=== PATIENT | male | born 1995 | race Hispanic/Latino ===

== ENCOUNTER 2020-09-20 09:41 | Outpatient (CLI) | payer OTHER, SELFPAY ==
--- NOTE | 2020-09-20 11:30 | NEURO_ITS ---
Impression: # Complains of paresthesia of left upper extremity. # Left Carpal Tunnel Syndrome. # No ulnar neuropathy. # Normal needle/EMG exam. # Clinical correlation recommended. Nerve Conduction Studies Anti Sensory Summary Table Stim Site NR Peak (ms) P-T Amp (?V) Site1 Site2 Delta-P (ms) Dist (cm) Enmanuel (m/s) Left Median Anti Sensory (2-3nd Digit) Wrist 3.0 67.2 Wrist 2-3nd Digit 3.0 14.0 47 Wrist 3.1 43.0 Wrist 2-3nd Digit 3.0 14.0 47 Left Radial Anti Sensory (Base 1st Digit) Wrist 2.0 17.0 Wrist Base 1st Digit 2.0 0.0 Left Ulnar Anti Sensory (5th Digit) Wrist 2.9 77.2 Wrist 5th Digit 2.9 14.0 48 Motor Summary Table Stim Site NR Onset (ms) O-P Amp (mV) Site1 Site2 Delta-0 (ms) Dist (cm) Enmanuel (m/s) Left Median Motor (Abd Poll Brev) Wrist 4.1 2.7 Elbow Wrist 5.0 28.0 56 Elbow 9.1 4.5 Left Ulnar Motor (Abd Dig Minimi) Wrist 2.7 7.1 A Elbow Wrist 5.0 30.0 60 A Elbow 7.7 6.1 B Elbow Wrist 1.7 0.0 F Wave Studies NR F-Lat (ms) L-R F-Lat (ms) Left Median (Mrkrs) (Abd Poll Brev) 26.63 Left Ulnar (Mrkrs) (Abd Dig Min) 26.72 EMG Side Muscle Nerve Root Ins Act Fibs Amp Dur Recrt Comment Left 1stDorInt Ulnar C8-T1 Nml Nml Nml Nml Nml Left Ext Indicis Radial (Post Int) C7-8 Nml Nml Nml Nml Nml Left Ext Digitorum Radial (Post Int) C7-8 Nml Nml Nml Nml Nml Left BrachioRad Radial C5-6 Nml Nml Nml Nml Nml Left PronatorTeres Median C6-7 Nml Nml Nml Nml Nml Left Abd Poll Brev Median C8-T1 Nml Nml Nml Nml Nml Left ABD Dig Min Ulnar C8-T1 Nml Nml Nml Nml Nml Left Anconeus Radial C7-8 Nml Nml Nml Nml Nml Left Biceps Musculocut C5-6 Nml Nml Nml Nml Nml Left Brachialis Musculocut C5-6 Nml Nml Nml Nml Nml Left Triceps Radial C6-7-8 Nml Nml Nml Nml Nml Left Deltoid Axillary C5-6 Nml Nml Nml Nml Nml MTDD
== END 2020-09-20 09:42 | disposition home or self-care (01) ==
PROVIDERS: PCP Emergency Medicine; Visit Provider Emergency Medicine
DX: R20.2 Paresthesia of skin (principal); G56.02 Carpal tunnel syndrome, left upper limb
CPT/HCPCS: 95886; 95909

== ENCOUNTER 2024-01-02 12:58 | Emergency (ER) | payer SELFPAY ==
--- NOTE | ~2024-01-02 | XR_ITS ---
Right Knee Technique: AP, lateral, and oblique views were obtained. Clinical History: Pain Findings: No fracture or dislocation is seen. Osseous alignment is anatomic. Joint spaces are preserv ed without degenerative or erosive change. Soft tissues are unremarkable. No joint effusion is seen. Impression: Unremarkable right knee radiographs. Reviewed, dictated and finalized at [facility]. PULLER Impression: Unremarkable right knee radiographs.
[2024-01-02 13:01] VITALS: BP 140/73; PULSE 70; RESP 16; TEMP 36.8; O2SAT 99
--- NOTE | 2024-01-02 14:26 | ED.GENADULT ---
[facility] - General Adult General Chief complaint: Extremity Injury, Lower Stated complaint: right knee Time Seen by Provider: 01/02/24 13:45 Source: patient Mode of arrival: ambulatory Limitations: no limitations History of Present Illness HPI narrative: This is a 28-year-old male who presents to the ED with chief complaint of right knee injury that occurred last night. Patient was playing indoor soccer when he was pushed into the wall by another player. He reports landing on the right leg and felt a pop in the knee. He was unable to play after. Reports difficulty with bending the knee and ambulating but is able hobble. Denies numbness, weakness or any further sites of pain or injury. Related Data Allergies Allergy/AdvReac Type Severity Reaction Status Date / Time No Known Allergies Allergy Verified 01/02/24 13:44 Review of Systems Review of Systems: All systems as dictated in [facility] Family History Family History (Updated 09/10/17 @ 15:41 by DOCTOR UNKNOWN) Mother Asthma, Onset Age: 32 Sibling Asthma Patient's brother is in good health Father Patient's father is in good health Exam Narrative: GENERAL: Well-appearing, well-nourished, and in no acute distress. HEAD: Normocephalic, atraumatic. EYES: PERRLA and EOMI. ENT: Nares clear, no rhinorrhea or epistaxis. Mucous membranes moist. Oropharynx without tonsillar hypertrophy exudate or other lesions. NECK: Supple. No adenopathy or masses. CHEST: No respiratory distress. Clear to auscultation. No wheezes rales or rhonchi HEART: Regular rate and rhythm. No murmur heard. Normal peripheral pulses. ABDOMEN: Soft, nontender, nondistended, normal active bowel sounds. MSK: RLE: Mild joint effusion at the knee. Mild tenderness to the medial knee. Full active range of motion although with pain. Valgus stress of the knee causes pain. Neurovascularly intact distally. Soft compartments. LLE: Benign SKIN: Warm, dry, no rash. NEURO: Alert and oriented x3. No focal deficits. PSYCH: Normal mood and affect. Course Vital Signs Vital signs: Vital Signs Temperature 98.2 F 01/02/24 13:01 Pulse Rate 70 01/02/24 13:01 Respiratory Rate 16 01/02/24 13:01 Blood Pressure 140/73 01/02/24 13:01 Pulse Oximetry 99 01/02/24 13:01 Oxygen Delivery Room Air 01/02/24 13:01 Temperature 98.2 F 01/02/24 13:01 Pulse Rate 66 01/02/24 14:29 Respiratory Rate 15 01/02/24 14:29 Blood Pressure 127/85 01/02/24 14:29 Pulse Oximetry 99 01/02/24 14:29 Oxygen Delivery Room Air 01/02/24 13:01 Medical Decision Making MDM Narrative Medical decision making narrative: This is a 28-year-old male who presents to the ED for chief complaint of right knee injury that occurred last night. Vitals are normal. Exam shows some a mild right knee swelling but full range of motion. No bruising or deformity. Neurovascularly intact. X-rays show no acute osseous findings. Symptoms are most likely consistent with soft tissue injury. He was given knee immobilizer, crutches and orthopedic referral. Pt will be discharged in stable condition. Return precautions given and supportive measures discussed. Pt is understanding and agreeable with plan for discharge and follow-up with PCP. Vital Signs Vital Signs: Vital Signs Temperature 98.2 F 01/02/24 13:01 Pulse Rate 70 01/02/24 13:01 Respiratory Rate 16 01/02/24 13:01 Blood Pressure 140/73 01/02/24 13:01 Pulse Oximetry 99 01/02/24 13:01 Oxygen Delivery Room Air 01/02/24 13:01 Temperature 98.2 F 01/02/24 13:01 Pulse Rate 66 01/02/24 14:29 Respiratory Rate 15 01/02/24 14:29 Blood Pressure 127/85 01/02/24 14:29 Pulse Oximetry 99 01/02/24 14:29 Oxygen Delivery Room Air 01/02/24 13:01 Discharge Plan Discharge Clinical Impression: Injury of knee, right Patient Disposition: Home, Self-Care Condition: Stable Instructions: Antibi
[2024-01-02 14:29] VITALS: BP 127/85; PULSE 66; RESP 15; O2SAT 99
== END 2024-01-02 14:42 | disposition home or self-care (01) ==
PROVIDERS: Emergency Provider Physician Assistant; PCP Emergency Medicine
DX: S89.91XA Unspecified injury of right lower leg, initial encounter (principal); W03.XXXA Other fall on same level due to collision with another person, initial encounter; Y93.66 Activity, soccer
CPT/HCPCS: 73564; 99283